=== PATIENT | female | born 1965 | race Caucasian/White ===

== ENCOUNTER 2020-02-05 14:09 | Inpatient (IN) | payer SELFPAY ==
[~2020-02-05] VITALS: Ht 182.9 cm; Wt 81.6 kg
[2020-02-05] MEDS ORDERED: ACETAMINOPHEN 325 MG TABLET PO PRN (14:30)
== END 2020-02-05 16:16 | disposition home or self-care (01) | DRG 951 ==
LOC: MEDOV2 14:09
DX: Z09 Encounter for follow-up examination after completed treatment for conditions other than malignant neoplasm (principal)
CPT/HCPCS: G0378